=== PATIENT | male | born 1970 | race Caucasian/White ===

== ENCOUNTER 2022-08-03 15:52 | Emergency (ER) | payer OTHER ==
--- NOTE | 2022-08-03 16:26 | ERPHSYRPT ---
- History of Present Illness Source: patient Exam Limitations: other (Poor historian) Patient Subjective Stated Complaint: Pt states "They are changing my anxiety meds and I have celiacs disease and since I have changed my diet, I have been having panic attacks." Triage Nursing Assessment: PT presented alert and oriented X 3, skin wpd. pt ambulates with an upright steady gait, able to speak in clear full sentences. PT resting comfortably on the bed. Physician History: 52 yo WM from [place] complains of anxiety. Pt has a h/o anxiety and takes vistaril for it. He denies being suicidal/homicidal at this time. Chest pain/dyspnea are also denied. He has some mild nausea wo vomiting or diarrhea. Timing/Duration: today Severity: mild Modifying Factors: Improves With: nothing Associated Symptoms: denies symptoms, nausea Allergies/Adverse Reactions: gluten Adverse Reaction (Severe, Verified 08/03/22 16:04) abdominal issues Home Medications: Hydroxyzine HCl 25 mg [Atarax 25 mg] 25 mg PO TID 08/03/22 [History] Lorazepam 1 mg [Ativan 1 MG] 1 mg PO BID 08/03/22 [History] Omeprazole 40 mg PO DAILY 08/03/22 [History] Sertraline HCl 100 mg PO BID 08/03/22 [History] Hx Tetanus, Diphtheria Vaccination/Date Given: No Hx Influenza Vaccination/Date Given: Yes Hx Pneumococcal Vaccination/Date Given: No Immunizations Up to Date: No Travel Risk - International Travel Have you traveled outside of the country in past 3 weeks: No - Coronavirus Screening Are you exhibiting any of the following symptoms?: No Close contact with a COVID-19 positive Pt in past 14-21 Days: No - Vaccine Status Have you recieved a Covid-19 vaccination: Yes Property Insurance Claims Examiner: Moderna - Vaccination Dates Date of 2cond Vaccination (if applicable): 2020 - Review of Systems Constitutional: No Symptoms Eyes: No Symptoms Ears, Nose, & Throat: No Symptoms Respiratory: No Symptoms Cardiac: No Symptoms Abdominal/Gastrointestinal: No Symptoms Genitourinary Symptoms: No Symptoms Musculoskeletal: No Symptoms Skin: No Symptoms Neurological: No Symptoms Psychological: No Symptoms, Anxiety Endocrine: No Symptoms Hematologic/Lymphatic: No Symptoms Immunological/Allergic: No Symptoms - Past Medical History Pertinent Past Medical History: Yes Neurological History: No Pertinent History ENT History: No Pertinent History Cardiac History: High Cholesterol, Hypertension Respiratory History: No Pertinent History Endocrine Medical History: No Pertinent History Musculoskeletal History: No Pertinent History GI Medical History: Other History: No Pertinent History Psycho-Social History: Anxiety, Depression Male Reproductive Disorders: No Pertinent History Other Medical History: celiac - Past Surgical History Past Surgical History: Yes Other Surgical History: ankle left - Social History Smoking Status: Never smoker Exposure to second hand smoke: No Drug Use: none Patient Lives Alone: No - Nursing Vital Signs Nursing Vital Signs: Initial Vital Signs Temperature 98.2 F 08/03/22 15:58 Pulse Rate 90 08/03/22 15:58 Respiratory Rate 20 08/03/22 15:58 Blood Pressure 160/84 08/03/22 15:58 O2 Sat by Pulse Oximetry 97 08/03/22 15:58 Pain Scale Pain Intensity 0 Hypertensive - Physical Exam General Appearance: no apparent distress Eye Exam: PERRL/EOMI, eyes nml inspection Ears, Nose, Throat Exam: normal ENT inspection, TMs normal, pharynx normal, moist mucous membranes Neck Exam: normal inspection, non-tender, supple, full range of motion, No meningismus, No mass, No Brudzinski, No Kernig's Respiratory Exam: normal breath sounds, lungs clear, airway intact, No respiratory distress Cardiovascular Exam: regular rate/rhythm, normal heart sounds, normal peripheral pulses, capillary refill <2 sec, No murmur Gastrointestinal/Abdomen Exam: soft, normal bowel sounds, No tenderness Back Exam: normal inspection, normal range of motion, No CVA tenderness, No vertebral tenderness Extremity Exam: normal inspection, normal range of motion Neurologic Exam: alert, oriented x 3, cooperative, executive admin II-XII nml as tested, normal mood/affect, nml cerebellar function, nml station & gait, sensation nml, No motor deficits, No sensory deficit, No agitation Skin Exam: normal color, warm, dry, No rash Lymphatic Exam: No adenopathy SpO2 Interpretation: normal SpO2: 97 O2 Delivery: Room Air - Course Nursing assessment & vital signs reviewed: Yes Ordered Tests: Medication Summary Discontinued Medications Generic Name Dose Route Start Last Admin Trade Name Freq PRN Reason Stop Dose Admin Droperidol 0.625 mg 08/03/22 16:20 08/03/22 16:29 Droperidol 5 Mg/2 Ml Vial IM 08/03/22 16:21 0.625 mg STAT ONE Administration Droperidol Confirm 08/03/22 16:26 Droperidol 5 Mg/2 Ml Vial Administered 08/03/22 16:27 Dose 5 mg .ROUTE .STK-MED ONE - Progress Progress: improved Progress Note: 08/03/22 16:26 Nursing note and vital signs reviewed No food or housing insecurities noted Inspect done-Ativan 1mg #14 07/26/22, Ativan #14 07/19/22, Ativan 0.5mg #10 06/23/22 0.625mg IM Droperidol Pt denied suicidal/homicidal ideation during entire stay 08/03/22 22:11 Counseled pt/family regarding: diagnosis, need for follow-up Medical Desision Making - Risk of complications Low Risk: Low risk of morbidity from additional dx testing or treatment - Departure Departure Disposition: Home Clinical Impression: Anxiety Condition: Stable Critical Care Time: No Referrals: TRAVIS REID MD [Primary Care Provider] - Follow up/PCP as directed Instructions: Anxiety, Adult (DC) Additional Instructions: Follow up with your mental health therapist Return to ER as needed
[2022-08-03 17:03] VITALS: BP 104/78; PULSE 77
[2022-08-03 22:13] VITALS: O2SAT 97
== END 2022-08-03 17:01 | disposition home or self-care (01) ==
LOC: ED 15:52
DX: F41.9 Anxiety disorder, unspecified (principal); R11.0 Nausea; E78.5 Hyperlipidemia, unspecified; I10 Essential (primary) hypertension; Z79.899 Other long term (current) drug therapy
CPT/HCPCS: 96372; 99282

== ENCOUNTER 2023-03-15 09:25 | Emergency (ER) | payer OTHER ==
[2023-03-15 09:47] VITALS: TEMP 96.8
[2023-03-15] MEDS ORDERED: Reglan 10 MG/2 ML IV ONE (09:55)
[2023-03-15] MEDS ORDERED: Sodium Chloride 0.9% 1000 ML 1,000 ML IV STA (09:55)
[2023-03-15] MEDS ORDERED: PROTONIX 40 MG IV IV ONE ×2 (09:55→10:08)
[2023-03-15] MEDS ORDERED: Reglan 10 MG/2 ML ONE (10:08)
[2023-03-15] MEDS ORDERED: Sodium Chloride 0.9% 1000 ML 1,000 ML ONE (10:09)
[2023-03-15 10:17] LABS: Absolute Neutrophil Ct (ANC) 7.89 x10^3/uL (1.4-6.9); BASOPHIL % 0.6 % (0.0-0.4); Basophil (Absolute #) 0.06 x10^3/uL (0-0.4); Eosinophil % 0.8 % (0.00-5.0); Eosinophil (Absolute #) 0.08 x10^3/uL (0-0.5); Hematocrit 44.2 % (42-50); IMMATURE GRAN # 0.04 x10^3u/L (0.00-0.03); IMMATURE GRAN % 0.4 % (0.00-0.4); Lymphocyte (Absolute #) 1.86 x10^3/uL (1.0-4.6); Lymphocytes % 17.7 % (24.0-44.0); Mean Cell Volume 79.1 fL (78-100); Mean Corpuscular Hgb Concent. 31.7 g/dL (32-36); Mean Platelet Volume 10.6 fL (7.5-11.0); Monocytes % 5.7 % (0.0-12.0); Neutrophil % 74.8 % (36.0-66.0); Platelet Count 284 x10^3/uL (150-450); Red Blood Count 5.59 x10^6/uL (4.1-5.6); Red Cell Distribution Width 14.8 % (11.5-14.0); White Blood Count 10.5 x10^3/uL (4.0-10.5)
[2023-03-15] MEDS ORDERED: Ativan 2 MG/1 ML VIAL IV ONE (10:17)
[2023-03-15] MEDS ORDERED: Ativan 2 MG/1 ML VIAL ONE (10:24)
--- NOTE | 2023-03-15 10:26 | ERPHSYRPT ---
- History of Present Illness Time Seen by Provider: 03/15/23 09:53 Historian: patient Exam Limitations: no limitations Patient Subjective Stated Complaint: "I fell off the wagon, I'm here for alcohol withdrawl. I was doing good for a while but I started drinking again. I drink a fifth of vodka a day but I was sober, I've been to rehab. Holidays are tough, me and my girlfriend have been arguing". Triage Nursing Assessment: Pt presents to ER for help with alcohol withdrawl symptoms. Pt states new stressors due to holidays and recent arguments with girlfriend. Pt appears depressed and wants help with symptoms. Admits to prior rehab for alcohol use but has been sober for a while until this past few weeks. Pt states drinks fifth of vodka per day. Pt has tremors and nausea. States vomited several times throughout last night. Pt states has upper diffused abdominal pains, rates pain 8/10 scale. Pt is tender upon exam. Pt abdomen is soft to touch, bowel sounds hyperactive. Pt respirations are easy. Lungs are clear. Denies shortness of breath. Skin is pink, warm, and dry. Physician History: 52 years old male with history of anxiety, GERD, hypertension, alcohol abuse with rehab, was sober for 6 months but started almost 12 days ago again with drinking every day with last drink last night. Patient reports Holiday stressors brought him to the point of drinking again. Patient was going to his family in [place] and got nauseated and vomited multiple times. He is having tremors with moderate intensity upper abdominal pain. No fever or chills reported. Denies any chest pain. Patient thinks he is going into DTs. Denies any substance abuse. Allergies/Adverse Reactions: gluten Adverse Reaction (Severe, Verified 08/03/22 16:04) abdominal issues Home Medications: Hydroxyzine HCl 25 mg [Atarax 25 mg] 25 mg PO TID 08/03/22 [History] Lorazepam 1 mg [Ativan 1 MG] 1 mg PO BIDPRN PRN 08/03/22 [History] Sertraline HCl 100 mg PO BID 08/03/22 [History] Bupropion HCl 150 mg Sr [Wellbutrin SR 150 MG] 150 mg PO DAILY 03/15/23 [History] Clonidine HCl 0.1 mg [Clonidine 0.1 mg Tablet] 0.1 mg PO BID 03/15/23 [History] Gabapentin [Neurontin ] 100 mg PO DAILY 03/15/23 [History] Lisinopril 20 mg [Zestril 20 MG] 20 mg PO BID 03/15/23 [History] Trazodone HCl 50 mg [Desyrel 50 mg] 100 mg PO DAILY PRN PRN 03/15/23 [History] Hx Tetanus, Diphtheria Vaccination/Date Given: No Hx Influenza Vaccination/Date Given: No Hx Pneumococcal Vaccination/Date Given: No Immunizations Up to Date: No Travel Risk - International Travel Have you traveled outside of the country in past 3 weeks: No - Coronavirus Screening Are you exhibiting any of the following symptoms?: No - Vaccine Status Have you recieved a Covid-19 vaccination: No Scuba Instructor: Moderna - Vaccination Dates Date of 2cond Vaccination (if applicable): 2020 - Review of Systems Constitutional: Fatigue, Weakness Eyes: No Symptoms Ears, Nose, & Throat: No Symptoms Respiratory: No Symptoms Cardiac: No Symptoms Abdominal/Gastrointestinal: Abdominal Pain, Nausea, Vomiting Genitourinary Symptoms: No Symptoms Musculoskeletal: Myalgias Skin: No Symptoms Neurological: No Symptoms Psychological: No Symptoms Hematologic/Lymphatic: No Symptoms Immunological/Allergic: No Symptoms - Past Medical History Pertinent Past Medical History: Yes Neurological History: No Pertinent History ENT History: No Pertinent History Cardiac History: High Cholesterol, Hypertension Respiratory History: No Pertinent History Endocrine Medical History: No Pertinent History Musculoskeletal History: No Pertinent History GI Medical History: Other History: No Pertinent History Psycho-Social History: Anxiety, Depression Male Reproductive Disorders: No Pertinent History Other Medical History: celiac - Past Surgical History Past Surgical History: Yes Other Surgical History: ankle left - Social History Smoking Status: Current every day smoker Exposure to second hand smoke: No Drug Use: none Patient Lives Alone: Yes - Nursing Vital Signs Nursing Vital Signs: Initial Vital Signs Pulse Rate 104 H 03/15/23 09:31 Respiratory Rate 7 L 03/15/23 09:31 Blood Pressure 144/104 03/15/23 09:31 O2 Sat by Pulse Oximetry 96 03/15/23 09:31 Pain Scale Pain Intensity 8 - Physical Exam General Appearance: no apparent distress, alert Eye Exam: PERRL/EOMI Ears, Nose, Throat Exam: normal ENT inspection Neck Exam: normal inspection, non-tender, supple, full range of motion Respiratory Exam: normal breath sounds, lungs clear Cardiovascular Exam: regular rate/rhythm, normal heart sounds Gastrointestinal/Abdomen Exam: soft, normal bowel sounds, tenderness (Upper abdomen), No guarding, No rebound Back Exam: normal inspection, normal range of motion, No CVA tenderness Extremity Exam: normal inspection, normal range of motion, pelvis stable Neurologic Exam: alert, oriented x 3, cooperative, school counselor II-XII nml as tested, sensation nml, other (Tremors), No motor deficits Skin Exam: normal color SpO2 Interpretation: normal SpO2: 97 O2 Delivery: Room Air Ordered Tests: Active Orders 24 hr Category Date Time Status IV Insertion STAT Care 03/15/23 09:55 Active NPO (ED) STAT Care 03/15/23 09:55 Active ABDOMEN AND PELVIS W/0 CONTRAS [CT] Stat Exams 03/15/23 09:55 Completed CBC W DIFF Stat Lab 03/15/23 09:55 Completed CMP Stat Lab 03/15/23 10:15 Completed ETHYL ALCOHOL Stat Lab 03/15/23 10:15 Completed LIPASE Stat Lab 03/15/23 10:15 Completed TROPONIN Q4H Lab 03/15/23 10:15 Completed TROPONIN Q4H Lab 03/15/23 14:00 Ordered TROPONIN Q4H Lab 03/15/23 18:00 Ordered UA W/RFX UR CULTURE Stat Lab 03/15/23 11:16 Completed Urine Triage Profile Stat Lab 03/15/23 11:16 Completed Medication Summary Discontinued Medications Generic Name Dose Route Start Last Admin Trade Name Freq PRN Reason Stop Dose Admin Al Hydrox/Mg Hydrox/Simethicone Confirm 03/15/23 10:51 Mag Hydrox/Al Hydrox/Simeth 30 Ml Udcup Administered 03/15/23 10:52 Dose 30 ml .ROUTE .STK-MED ONE Sodium Chloride 1,000 mls @ 999 mls/hr 03/15/23 09:55 03/15/23 10:11 Sodium Chloride 0.9% 1000 Ml IV 03/15/23 10:55 999 mls/hr .Q1H1M STA Administration Sodium Chloride Confirm 03/15/23 10:09 Sodium Chloride 0.9% 1000 Ml Administered 03/15/23 10:10 Dose 1,000 mls @ ud .ROUTE .STK-MED ONE Lidocaine HCl Confirm 03/15/23 10:51 Lidocaine Hcl 2% Viscous 15 Ml Udcup Administered 03/15/23 10:52 Dose 15 ml .ROUTE .STK-MED ONE Lorazepam 2 mg 03/15/23 10:17 03/15/23 10:24 Lorazepam 2 Mg/1 Ml 2 Mg Vial IV 03/15/23 10:18 2 mg STAT ONE Administration Lorazepam Confirm 03/15/23 10:24 Lorazepam 2 Mg/1 Ml 2 Mg Vial Administered 03/15/23 10:25 Dose 2 mg .ROUTE .STK-MED ONE Magnesium Hydroxide 45 ml 03/15/23 10:48 03/15/23 10:55 Mag Hydrx/Alum Hyd/Simeth/Lido 45 Ml Bottle PO 03/15/23 10:49 45 ml STAT ONE Administration Metoclopramide HCl 10 mg 03/15/23 09:55 03/15/23 10:11 Metoclopramide Hcl 10 Mg/2 Ml Vial IV 03/15/23 09:56 10 mg STAT ONE Administration Metoclopramide HCl Confirm 03/15/23 10:08 Metoclopramide Hcl 10 Mg/2 Ml Vial Administered 03/15/23 10:09 Dose 10 mg .ROUTE .STK-MED ONE Pantoprazole Sodium 40 mg 03/15/23 09:55 03/15/23 10:11 Pantoprazole 40 Mg Vial IV 03/15/23 09:56 40 mg STAT ONE Administration Pantoprazole Sodium Confirm 03/15/23 10:08 Pantoprazole 40 Mg Vial Administered 03/15/23 10:09 Dose 40 mg IV .STK-MED ONE Lab/Rad Data: Laboratory Result Diagrams 03/15/23 09:55 03/15/23 10:15 Laboratory Results 03/15/23 03/15/23 03/15/23 Range/Units 11:16 11:16 10:15 WBC (4.0-10.5) x10^3/uL RBC (4.1-5.6) x10^6/uL Hgb (12.5-18.0) g/dL Hct (42-50) % MCV (78-100) fL MCH (26-32) pg MCHC (32-36) g/dL RDW (11.5-14.0) % Plt Count (150-450) x10^3/uL MPV (7.5-11.0) fL Gran % (36.0-66.0) % Immature Gran % (Auto) (0.00-0.4) % Nucleat RBC Rel Count (0.00-0.1) % Eos # (Auto) (0-0.5) x10^3/uL Immature Gran # (Auto) (0.00-0.03) x10^3u/L Absolute Lymphs (auto) (1.0-4.6) x10^3/uL Absolute Monos (auto) (0.0-1.3) x10^3/uL Absolute Nucleated RBC (0.00-0.01) x10^3u/L Lymphocytes % (24.0-44.0) % Monocytes % (0.0-12.0) % Eosinophils % (0.00-5.0) % Basophils % (0.0-0.4) % Absolute Granulocytes (1.4-6.9) x10^3/uL Basophils # (0-0.4) x10^3/uL Sodium (137-145) mmol/L Potassium (3.5-5.1) mmol/L Chloride (98-107) mmol/L Carbon Dioxide (22-30) mmol/L Anion Gap (5-15) MEQ/L BUN (9-20) mg/dL Creatinine (0.66-1.25) mg/dL Estimated GFR ML/MIN Glucose (74-106) mg/dL Calcium (8.4-10.2) mg/dL Total Bilirubin (0.2-1.3) mg/dL AST (17-59) U/L ALT (0-50) U/L Alkaline Phosphatase (38-126) U/L Troponin I < 0.012 (0.000-0.034) ng/mL Serum Total Protein (6.3-8.2) g/dL Albumin (3.5-5.0) g/dL Lipase (23-300) U/L Urine Color Yellow (Yellow) Urine Appearance Clear (Clear) Urine pH 5.5 (4.6-8.0) Ur Specific [place] 1.025 (1.005-1.030) Urine Protein Trace A (Negative) Urine Glucose (UA) Negative (Negative) mg/dL Urine Ketones 15 A (Negative) Urine Blood Negative (Negative) Urine Nitrite Negative (Negative) Urine Bilirubin Negative (Negative) Urine Urobilinogen 1.0 A (0.2) mg/dL Ur Leukocyte Esterase Negative (Negative) U Hyaline Cast (Auto) NONE SEEN (0-2) /LPF Urine Microscopic RBC 0-2 (0-5) /HPF Urine Microscopic WBC 0-2 (0-5) /HPF Ur Epithelial Cells None Seen (None Seen) /HPF Urine Bacteria None Seen (None Seen) /HPF Urine Culture Reflexed NO (NO) Urine Opiates Level NEGATIVE (NEGATIVE) Ur Methadone NEGATIVE (NEGATIVE) Urine Barbiturates NEGATIVE (NEGATIVE) Ur Phencyclidine (PCP) NEGATIVE (NEGATIVE) Urine Amphetamine NEGATIVE (NEGATIVE) U Benzodiazepine Level NEGATIVE (NEGATIVE) Urine Cocaine NEGATIVE (NEGATIVE) Urine Marijuana (THC) NEGATIVE (NEGATIVE) Ethyl Alcohol (0-10) mg/dL 03/15/23 03/15/23 Range/Units 10:15 09:55 WBC 10.5 (4.0-10.5) x10^3/uL RBC 5.59 (4.1-5.6) x10^6/uL Hgb 14.0 (12.5-18.0) g/dL Hct 44.2 (42-50) % MCV 79.1 (78-100) fL MCH 25.0 L (26-32) pg MCHC 31.7 L (32-36) g/dL RDW 14.8 H (11.5-14.0) % Plt Count 284 (150-450) x10^3/uL MPV 10.6 (7.5-11.0) fL Gran % 74.8 H (36.0-66.0) % Immature Gran % (Auto) 0.4 (0.00-0.4) % Nucleat RBC Rel Count 0.0 (0.00-0.1) % Eos # (Auto) 0.08 (0-0.5) x10^3/uL Immature Gran # (Auto) 0.04 H (0.00-0.03) x10^3u/L Absolute Lymphs (auto) 1.86 (1.0-4.6) x10^3/uL Absolute Monos (auto) 0.60 (0.0-1.3) x10^3/uL Absolute Nucleated RBC 0.00 (0.00-0.01) x10^3u/L Lymphocytes % 17.7 L (24.0-44.0) % Monocytes % 5.7 (0.0-12.0) % Eosinophils % 0.8 (0.00-5.0) % Basophils % 0.6 (0.0-0.4) % Absolute Granulocytes 7.89 H (1.4-6.9) x10^3/uL Basophils # 0.06 (0-0.4) x10^3/uL Sodium 134 L (137-145) mmol/L Potassium 4.8 (3.5-5.1) mmol/L Chloride 100 (98-107) mmol/L Carbon Dioxide 19 L (22-30) mmol/L Anion Gap 20.7 H (5-15) MEQ/L BUN 16 (9-20) mg/dL Creatinine 0.78 (0.66-1.25) mg/dL Estimated GFR 106.6 ML/MIN Glucose 142 H (74-106) mg/dL Calcium 8.4 (8.4-10.2) mg/dL Total Bilirubin 0.60 (0.2-1.3) mg/dL AST 26 (17-59) U/L ALT 22 (0-50) U/L Alkaline Phosphatase 81 (38-126) U/L Troponin I (0.000-0.034) ng/mL Serum Total Protein 7.4 (6.3-8.2) g/dL Albumin 4.2 (3.5-5.0) g/dL Lipase 90 (23-300) U/L Urine Color (Yellow) Urine Appearance (Clear) Urine pH (4.6-8.0) Ur Specific [place] (1.005-1.030) Urine Protein (Negative) Urine Glucose (UA) (Negative) mg/dL Urine Ketones (Negative) Urine Blood (Negative) Urine Nitrite (Negative) Urine Bilirubin (Negative) Urine Urobilinogen (0.2) mg/dL Ur Leukocyte Esterase (Negative) U Hyaline Cast (Auto) (0-2) /LPF Urine Microscopic RBC (0-5) /HPF Urine Microscopic WBC (0-5) /HPF Ur Epithelial Cells (None Seen) /HPF Urine Bacteria (None Seen) /HPF Urine Culture Reflexed (NO) Urine Opiates Level (NEGATIVE) Ur Methadone (NEGATIVE) Urine Barbiturates (NEGATIVE) Ur Phencyclidine (PCP) (NEGATIVE) Urine Amphetamine (NEGATIVE) U Benzodiazepine Level (NEGATIVE) Urine Cocaine (NEGATIVE) Urine Marijuana (THC) (NEGATIVE) Ethyl Alcohol 36 H (0-10) mg/dL - Progress Progress: improved, re-examined Progress Note: 03/15/23 12:24 51 years old is evaluated in the ER for nausea vomiting with some abdominal pain after patient has been binge drinking for the last 12 days and last drink was yesterday/last night. Patient is given symptomatic treatment for nausea vomiting and fluid bolus. He is also given Protonix and GI cocktail, on reevaluation feeling much better. Workup showed normal white count, fairly unremarkable chemistries except for elevated gap which is related to alcohol. I have obtained CT abdomen pelvis which showed circumferential thickening of lower end of esophagus suggesting esophagitis. I believe patient has some element of gastritis with esophagitis related to heavy alcohol use. I will c ontinue with Protonix and Carafate to go home. I have offered him rehab/admission today but patient does not want to quit drinking and will cut down slowly on his own and patient does report he has done in the past as well. He will follow-up/call rehab places on his own. I have discussed the signs symptoms of worsening needing return to ER which he seems understanding. Stable for discharge. 03/15/23 12:46 Counseled pt/family regarding: lab results, diagnosis, need for follow-up, rad results Medical Desision Making - Diagnostic Testing Diagnostic test were ordered, analyzed, and reviewed by me: Yes Radiological Interpretation: Reviewed by me - Risk of complications The pt has a mod risk of morbidity or mortality based on: Need for prescription drug management - Departure Departure Disposition: Home Clinical Impression: Gastritis due to alcohol without hemorrhage, Esophagitis, Alcohol abuse Condition: Stable Critical Care Time: No Referrals: TRAVIS REID MD [Primary Care Provider] - Follow Up with PCP/3 days Instructions: Acid Reflux and GERD in Adults (DC), Alcohol Withdrawal (DC), Alcohol Use Disorder (DC) Additional Instructions: Cut down on your drinking gradually. Follow-up with primary care for reevaluation and may need referral for GI for further evaluation of esophageal thickening with endoscopy and also biopsy of esophagus/stomach. Take Zofran as needed. Drink plenty of fluids. Return to ER for worsening of symptoms like intractable abdominal pain/vomiting or cannot control your alcohol intake. Also follow alcohol withdrawal symptoms and return to ER promptly. Prescriptions: Sucralfate 1 gm [Carafate 1 GM] 1 g PO ACHS #20 tablet PANTOPRAZOLE 40 mg Tablet [Protonix 40MG Tablet] 40 mg PO QAM #30 tab Ondansetron ODT 4 MG [Zofran Odt 4 mg] 1 ea PO QIDPRN PRN #7 tablet PRN Reason: n/v
[2023-03-15 10:33] LABS: ALBUMIN 4.2 g/dL (3.5-5.0); ANION GAP 20.7 MEQ/L (5-15); BILIRUBIN,TOTAL 0.6 mg/dL (0.2-1.3); Calcium 8.4 mg/dL (8.4-10.2); Creatinine 1 0.78 mg/dL (0.66-1.25); EST GLOMERULAR FILTRATION RATE 106.6 ML/MIN; Potassium 4.8 mmol/L (3.5-5.1); Total Protein 7.4 g/dL (6.3-8.2)
--- NOTE | 2023-03-15 10:37 | XRAY ---
Indication: Pain and vomiting. Multiple contiguous axial images obtained through the abdomen and pelvis without contrast. Comparison: None Lung bases themselves are small left lower lobe calcified granuloma. No infiltrate or effusion. Heart not enlarged. Distal esophageal circumferential wall thickening, possible esophagitis. Abdomen/pelvis slightly degraded by respiration artifact. Noncontrasted stomach and bowel loops appear nonobstructed with normal appendix. Minimal scattered colonic diverticulosis without diverticulitis. 25.5 cm fatty hepatomegaly and a few tiny splenic calcified granulomas. No free fluid/air. Remaining liver, gallbladder, pancreas, spleen, adrenal glands, kidneys, ureters, and bladder are unremarkable for noncontrast exam. Minimal aortoiliac calcifications without AAA. Osseous structures intact with mild degenerative changes throughout the spine. No ventral or inguinal hernias Impression: 1. Distal esophageal circumferential wall thickening. Rule out esophagitis. 2. Chronic findings including fatty hepatomegaly, arteriosclerotic disease, degenerative spondylosis, and old granulomatous disease.
[2023-03-15] MEDS ORDERED: GI COCKTAIL 45 ML (Maalox/Lidocaine) PO ONE (10:48)
[2023-03-15] MEDS ORDERED: XYLOCAINE VISCOUS 2% 15 ML CUP ONE (10:51)
[2023-03-15] MEDS ORDERED: MAALOX ES 30 ML UNIT DOSE ONE (10:51)
[2023-03-15 11:32] VITALS: O2SAT 97
[2023-03-15 12:06] LABS: Appearance Clear (Clear); Bacteria None Seen /HPF (None Seen); Bilirubin Negative (Negative); Blood Negative (Negative); Epithelial Cells None Seen /HPF (None Seen); Glucose, Urine Negative (Negative); Hyaline Casts NONE SEEN /LPF (0-2); Ketones 15 (Negative); Leukocyte Esterase Negative (Negative); Nitrite Negative (Negative); Ph 5.5 (4.6-8.0); Protein,Urine Dip Trace (Negative); RBC 0-2 /HPF (0-5); Specific Gravity 1.025 (1.005-1.030); WBC 0-2 /HPF (0-5)
[2023-03-15 12:13] LABS: ADD URINE CULTURE? NO (NO)
[2023-03-15 12:18] LABS: Amphetamine,Urine NEGATIVE (NEGATIVE); Barbiturate,Urine NEGATIVE (NEGATIVE); Benzodiazepine,Urine NEGATIVE (NEGATIVE); Cocaine,Urine NEGATIVE (NEGATIVE); Methadone,Urine NEGATIVE (NEGATIVE); Opiate,Urine NEGATIVE (NEGATIVE); PCP,Urine NEGATIVE (NEGATIVE); THC,Urine NEGATIVE (NEGATIVE)
[2023-03-15 14:28] VITALS: BP 138/86; PULSE 101; RESP 18
== END 2023-03-15 14:40 | disposition home or self-care (01) ==
LOC: ED 09:25
DX: K29.20 Alcoholic gastritis without bleeding (principal); F10.188 Alcohol abuse with other alcohol-induced disorder; K20.90 Esophagitis, unspecified without bleeding; I10 Essential (primary) hypertension; E78.5 Hyperlipidemia, unspecified; Z79.899 Other long term (current) drug therapy; Z72.0 Tobacco use
CPT/HCPCS: 36415; 74176; 80053; 80307; 81001; 82077; 83690; 84484; 85025; 96360; 96374; 96375; 99284; J2060; A9270-GY

== ENCOUNTER 2023-05-09 15:20 | Emergency (ER) | payer OTHER ==
[2023-05-09 15:37] VITALS: TEMP 98.2
[2023-05-09] MEDS ORDERED: BABY ASPIRIN 81 MG CHEW PO ONE (15:43)
[2023-05-09] MEDS ORDERED: TORAdol 30 mg Injection IV ONE (15:56)
[2023-05-09] MEDS ORDERED: TORAdol 30 mg Injection ONE (16:09)
--- NOTE | 2023-05-09 16:29 | XRAY ---
Indication: Chest pain 1 month. Comparison: None Portable chest demonstrates normal heart and lungs with incidental small left base calcified granuloma. Bony thorax intact. Impression: Nonacute chest with old granulomatous disease.
[2023-05-09 16:31] LABS: Absolute Neutrophil Ct (ANC) 5.17 x10^3/uL (1.4-6.9); BASOPHIL % 0.5 % (0.0-0.4); Basophil (Absolute #) 0.04 x10^3/uL (0-0.4); Eosinophil % 3.1 % (0.00-5.0); Eosinophil (Absolute #) 0.25 x10^3/uL (0-0.5); Hematocrit 40.5 % (42-50); Hemoglobin 12.4 g/dL (12.5-18.0); IMMATURE GRAN # 0.03 x10^3u/L (0.00-0.03); IMMATURE GRAN % 0.4 % (0.00-0.4); Lymphocyte (Absolute #) 1.89 x10^3/uL (1.0-4.6); Lymphocytes % 23.8 % (24.0-44.0); Mean Cell Volume 80.4 fL (78-100); Mean Corpuscular Hemoglobin 24.6 pg (26-32); Mean Corpuscular Hgb Concent. 30.6 g/dL (32-36); Mean Platelet Volume 11.5 fL (7.5-11.0); Monocyte (Absolute #) 0.56 x10^3/uL (0.0-1.3); Monocytes % 7.1 % (0.0-12.0); Neutrophil % 65.1 % (36.0-66.0); Platelet Count 242 x10^3/uL (150-450); Red Blood Count 5.04 x10^6/uL (4.1-5.6); Red Cell Distribution Width 14.5 % (11.5-14.0); White Blood Count 7.9 x10^3/uL (4.0-10.5)
[2023-05-09 16:57] LABS: ALBUMIN 3.9 g/dL (3.5-5.0); ALKALINE PHOSPHATASE 80 U/L (38-126); ANION GAP 8.8 MEQ/L (5-15); BLOOD UREA NITROGEN 9 mg/dL (9-20); CHLORIDE 102 mmol/L (98-107); Calcium 9.3 mg/dL (8.4-10.2); Carbon Dioxide 29 mmol/L (22-30); Creatinine 1 0.72 mg/dL (0.66-1.25); EST GLOMERULAR FILTRATION RATE 109.2 ML/MIN; Glucose 137 mg/dL (74-106); NT PRO BNPII < 20.0 pg/mL (<300); Potassium 4.2 mmol/L (3.5-5.1); SGOT/AST 24 U/L (17-59); SGPT/ALT 30 U/L (0-50); SODIUM 136 mmol/L (137-145); Total Protein 6.8 g/dL (6.3-8.2)
--- NOTE | 2023-05-09 17:25 | ERPHSYRPT ---
- History of Present Illness Time Seen by Provider: 05/09/23 15:24 Historian: patient Exam Limitations: no limitations Patient Subjective Stated Complaint: C/O intermittent chest pain for the past week Triage Nursing Assessment: Patient ambulated back to ER without difficulties. No SOB. Patient is alert and oriented; anxious. Skin tone normal. LINDER WNL. No edema. Physician History: 52-year-old male presented in the ER with chief complaint of off-and-on chest pain for 1 month. Patient reports having more frequent pain lasting longer for 1 week. He is having pain across anterior chest dull aching without any signif icant aggravating or relieving factors. Denies associated palpitations or shortness of breath. No cough fever or chills reported. Nitro Today/Relief: no nitro taken today Aspirin Treatment Today: no aspirin today Allergies/Adverse Reactions: gluten Adverse Reaction (Severe, Verified 05/09/23 15:25) abdominal issues Home Medications: Trazodone HCl 50 mg [Desyrel 50 mg] 100 mg PO DAILY PRN PRN 03/15/23 [History] Allopurinol 300 mg [Zyloprim 300 mg] 1 tab PO DAILY 05/09/23 [History] Amlodipine Besylate 5 mg [Norvasc 5 mg] 1 tab PO BID 05/09/23 [History] Atorvastatin Calcium [Lipitor 20MG Tablet] 1 tab PO DAILY 05/09/23 [History] Clonidine HCl 0.1 mg [Clonidine 0.1 mg Tablet] 1 tab PO BID 05/09/23 [History] Lisinopril 20 mg [Zestril 20 MG] 1 tab PO BID 05/09/23 [History] Hx Tetanus, Diphtheria Vaccination/Date Given: Yes Hx Influenza Vaccination/Date Given: No Hx Pneumococcal Vaccination/Date Given: No Immunizations Up to Date: Yes Travel Risk - International Travel Have you traveled outside of the country in past 3 weeks: No - Coronavirus Screening Are you exhibiting any of the following symptoms?: No Close contact with a COVID-19 positive Pt in past 14-21 Days: No - Vaccine Status Have you recieved a Covid-19 vaccination: No [employer]: Moderna - Vaccination Dates Date of 2cond Vaccination (if applicable): 2020 - Past Medical History Pertinent Past Medical History: Yes Neurological History: No Pertinent History ENT History: No Pertinent History Cardiac History: High Cholesterol, Hypertension Respiratory History: No Pertinent History Endocrine Medical History: No Pertinent History Musculoskeletal History: No Pertinent History GI Medical History: Other History: No Pertinent History Psycho-Social History: Anxiety, Depression Male Reproductive Disorders: No Pertinent History Other Medical History: celiac, history of alcohol abuse (sober for the past 3 months) - Past Surgical History Past Surgical History: Yes Other Surgical History: ankle left - Social History Smoking Status: Former smoker Exposure to second hand smoke: No Drug Use: none Patient Lives Alone: No (girlfriend) - Nursing Vital Signs Nursing Vital Signs: Initial Vital Signs Temperature 98.2 F 05/09/23 15:26 Pulse Rate 75 05/09/23 15:26 Respiratory Rate 12 05/09/23 15:26 Blood Pressure 141/100 05/09/23 15:26 O2 Sat by Pulse Oximetry 100 05/09/23 15:26 Pain Scale Pain Intensity 2 - Physical Exam SpO2: 98 - Course EKG Interpreted by Me: RATE (78), Sinus Rhythm, NORMAL AXIS, NORMAL INTERVALS, Non-specific ST Changes Ordered Tests: Active Orders 24 hr Category Date Time Status Plastic Surgery Manager STAT Care 05/09/23 15:43 Completed EKG-ER Only STAT Care 05/09/23 15:43 Completed IV Insertion STAT Care 05/09/23 15:43 Completed CHEST 1 VIEW (PORTABLE) Stat Exams 05/09/23 15:43 Completed CBC W DIFF Stat Lab 05/09/23 15:43 Completed CMP Stat Lab 05/09/23 16:00 Completed D-DIMER QUANTITATIVE Stat Lab 05/09/23 15:56 Completed NT PRO BNPII Stat Lab 05/09/23 16:00 Completed TROPONIN Q4H Lab 05/09/23 16:00 Completed TROPONIN Q4H Lab 05/09/23 18:25 Completed TROPONIN Q4H Lab 05/09/23 23:45 Ordered Medication Summary Discontinued Medications Generic Name Dose Route Start Last Admin Trade Name Freq PRN Reason Stop Dose Admin Aspirin 324 mg 05/09/23 15:43 05/09/23 15:44 Aspirin 81 Mg Tab.Chew PO 05/09/23 15:44 Not Given STAT ONE Ketorolac Tromethamine 30 mg 05/09/23 15:56 01/18/24 16:10 Ketorolac Tromethamine 30 Mg/Ml Inj IV 05/09/23 15:57 30 mg STAT ONE Administration Ketorolac Tromethamine Confirm 05/09/23 16:09 Ketorolac Tromethamine 30 Mg/Ml Inj Administered 05/09/23 16:10 Dose 30 mg .ROUTE .[facility] Lab/Rad Data: Laboratory Result Diagrams 05/09/23 15:43 05/09/23 16:00 Laboratory Results 05/09/23 05/09/23 05/09/23 Range/Units 18:25 16:00 16:00 WBC (4.0-10.5) x10^3/uL RBC (4.1-5.6) x10^6/uL Hgb (12.5-18.0) g/dL Hct (42-50) % MCV (78-100) fL MCH (26-32) pg MCHC (32-36) g/dL RDW (11.5-14.0) % Plt Count (150-450) x10^3/uL MPV (7.5-11.0) fL Gran % (36.0-66.0) % Immature Gran % (Auto) (0.00-0.4) % Nucleat RBC Rel Count (0.00-0.1) % Eos # (Auto) (0-0.5) x10^3/uL Immature Gran # (Auto) (0.00-0.03) x10^3u/L Absolute Lymphs (auto) (1.0-4.6) x10^3/uL Absolute Monos (auto) (0.0-1.3) x10^3/uL Absolute Nucleated RBC (0.00-0.01) x10^3u/L Lymphocytes % (24.0-44.0) % Monocytes % (0.0-12.0) % Eosinophils % (0.00-5.0) % Basophils % (0.0-0.4) % Absolute Granulocytes (1.4-6.9) x10^3/uL Basophils # (0-0.4) x10^3/uL D-Dimer (0.0-0.50) mg/L Sodium 136 L (137-145) mmol/L Potassium 4.2 (3.5-5.1) mmol/L Chloride 102 (98-107) mmol/L Carbon Dioxide 29 (22-30) mmol/L Anion Gap 8.8 (5-15) MEQ/L BUN 9 (9-20) mg/dL Creatinine 0.72 (0.66-1.25) mg/dL Estimated GFR 109.2 ML/MIN Glucose 137 H (74-106) mg/dL Calcium 9.3 (8.4-10.2) mg/dL Total Bilirubin 0.30 (0.2-1.3) mg/dL AST 24 (17-59) U/L ALT 30 (0-50) U/L Alkaline Phosphatase 80 (38-126) U/L Troponin I < 0.012 < 0.012 (0.000-0.034) ng/mL NT-Pro-B Natriuret Pep < 20.0 (<300) pg/mL Serum Total Protein 6.8 (6.3-8.2) g/dL Albumin 3.9 (3.5-5.0) g/dL 05/09/23 05/09/23 Range/Units 15:56 15:43 WBC 7.9 (4.0-10.5) x10^3/uL RBC 5.04 (4.1-5.6) x10^6/uL Hgb 12.4 L (12.5-18.0) g/dL Hct 40.5 L (42-50) % MCV 80.4 (78-100) fL MCH 24.6 L (26-32) pg MCHC 30.6 L (32-36) g/dL RDW 14.5 H (11.5-14.0) % Plt Count 242 (150-450) x10^3/uL MPV 11.5 H (7.5-11.0) fL Gran % 65.1 (36.0-66.0) % Immature Gran % (Auto) 0.4 (0.00-0.4) % Nucleat RBC Rel Count 0.0 (0.00-0.1) % Eos # (Auto) 0.25 (0-0.5) x10^3/uL Immature Gran # (Auto) 0.03 (0.00-0.03) x10^3u/L Absolute Lymphs (auto) 1.89 (1.0-4.6) x10^3/uL Absolute Monos (auto) 0.56 (0.0-1.3) x10^3/uL Absolute Nucleated RBC 0.00 (0.00-0.01) x10^3u/L Lymphocytes % 23.8 L (24.0-44.0) % Monocytes % 7.1 (0.0-12.0) % Eosinophils % 3.1 (0.00-5.0) % Basophils % 0.5 (0.0-0.4) % Absolute Granulocytes 5.17 (1.4-6.9) x10^3/uL Basophils # 0.04 (0-0.4) x10^3/uL D-Dimer 0.21 (0.0-0.50) mg/L Sodium (137-145) mmol/L Potassium (3.5-5.1) mmol/L Chloride (98-107) mmol/L Carbon Dioxide (22-30) mmol/L Anion Gap (5-15) MEQ/L BUN (9-20) mg/dL Creatinine (0.66-1.25) mg/dL Estimated GFR ML/MIN Glucose (74-106) mg/dL Calcium (8.4-10.2) mg/dL Total Bilirubin (0.2-1.3) mg/dL AST (17-59) U/L ALT (0-50) U/L Alkaline Phosphatase (38-126) U/L Troponin I (0.000-0.034) ng/mL NT-Pro-B Natriuret Pep (<300) pg/mL Serum Total Protein (6.3-8.2) g/dL Albumin (3.5-5.0) g/dL - Progress Progress: improved, re-examined Air Movement: good Progress Note: 05/09/23 19:12 52 years old is evaluated in the ER for chest pain off and on for over a month but lately getting worse. All across the chest. The EKG is normal sinus with no acute ST elevation. Negative troponins x 2. Chest x-ray negative for any acute cardiopulmonary findings. D-dimer is negative. He is given aspirin and Toradol, on reevaluation feeling much better. Pain is not very typical for CAD and with 2 negative troponins send pain going on for quite some time it rules it out. Do not think patient needs to be admitted and improvement in the chest pain with Toradol it seems more of a pleuritic/musculoskeletal. Although patient workup is negative in the ER, will refer him outpatient cardiology for further evaluation. Discussed signs symptoms of worsening needing return to ER which she seems understanding. Stable for discharge. Blood Culture(s) Obtained: No Antibiotics given: No Counseled pt/family regarding: lab results, diagnosis, need for follow-up, rad results, smoking cessation Medical Desision Making - Diagnostic Testing Diagnostic test were ordered, analyzed, and reviewed by me: Yes Radiological Interpretation: Reviewed by me - Departure Departure Disposition: Home Clinical Impression: Atypical chest pain Condition: Stable Critical Care Time: No Referrals: KE DUBOIS, CHIEF CONTROLLER [Primary Care Provider] - Follow up with PCP 1 day ROSALIA JOAQUIN [CONSULTING PHYSICIAN] - Follow up/PCP as directed (Call tomorrow for appointment for reevaluation) Instructions: Angina (DC), Chest Pain (DC) Additional Instructions: Take Tylenol/ibuprofen as needed. Do not smoke/vape. Follow-up with primary care/cardiology for reevaluation. Return to ER for worsening chest pain or if having difficulty breathing/palpitations etc.
[2023-05-09 18:54] VITALS: RESP 13
[2023-05-09 19:08] VITALS: PULSE 62; O2SAT 98
[2023-05-09 19:10] VITALS: BP 108/64
== END 2023-05-09 19:17 | disposition home or self-care (01) ==
LOC: ED 15:20
DX: R07.89 Other chest pain (principal); E78.5 Hyperlipidemia, unspecified; I10 Essential (primary) hypertension; Z79.899 Other long term (current) drug therapy
CPT/HCPCS: 36000; 36415; 71045; 80053; 83880; 84484; 85025; 85379; 93005; 93041; 96374; 99284; J1885